=== PATIENT | male | born 1965 | race Caucasian/White ===

== ENCOUNTER → 2016-11-08 | Day surgery (SDC) | payer BC ==
[2016-10-19 13:21] VITALS: Ht 177.8 cm; Wt 103.2 kg
[~2016-11-08] VITALS: Ht 177.8 cm; Wt 103.2 kg
[~2016-11-08] MED LIST: ASTN; CYCL10TA7 PO; FLUT0.0529 NAE; GABA400C PO; HYZ/50125 PO; IOPAMIDOL INJ 61% 15 ML VIAL ONE; LIDOCAINE HCL 1% MPF 5 ML VIAL ONE; MELA1TAB54 PO; METO25TA3 PO; MISC1CAP60 PO; MULT-506 PO; NAPR-1169 PO; OMEP20CA59 PO; SODIUM CHLORIDE 0.9% INJ 10 ML VIAL ONE; TRAZ1TAB8 PO; TURM1CAP2 PO; TYLOTC500 PO
--- NOTE | 2016-11-08 14:33 | History & Physical Bridge - [place] ---
H&P Re-Evaluation Bridge Note: I have examined the patient, reviewed the History & Physical and in the interval since the performance of the History & Physical I have noted the following changes of clinical significance: No changes noted
--- NOTE | 2016-11-08 15:07 | Discharge Instructions ---
Discharge Instructions Date of Service Nov 08, 2016. Visit Reason for Visit: Lumbosacral Intervertebral Disc Disorder Discharge Discharge Diagnosis / Problem: low back with right leg pain Discharge Goals Goal(s): Decrease discomfort, Improve function Activity Recommendations Activity Limitations: resume your previous activity Anesthesia . Post Anesthesia Instructions: If you have had General Anesthesia or IV Sedation: * Do not drive today. * Resume driving when surgeon permits. * Do not make important decisions or sign legal documents today. * Call surgeon for: 1. Temperature elevations greater than 101 degrees F. 2. Uncontrollable pain. 3. Excessive bleeding. 4. Persistent nausea and vomiting. 5. Medication intolerance (nausea, vomiting or rash). * For nausea and vomiting use only clear liquids such as: tea, soda, bouillon until nausea subsides, then gradually increase diet as tolerated. * If you have any concerns or questions, call your surgeon's office. If physician is unavailable and it is an emergency, call 911 or go to the nearest emergency room. . Diet Recommendations Recommended Home Diet: no limitations Procedures Procedures Performed: LUMBAR EPIDURAL STEROID INJECTION Pending Studies Studies pending at discharge: no Medical Emergencies . Who to Call and When: Medical Emergencies: If at any time you feel your situation is an emergency, please call 911 immediately. . Non-Emergent Contact Non-Emergency issues call your: Specialist . . "Provider Documentation" section prepared by Addy Sotelo. .
[2016-11-08 15:15] VITALS: BP 137/92; PULSE 86; O2SAT 97
--- NOTE | 2016-11-08 15:20 | OPERATIVE REPORT ---
DATE OF OPERATION: 11/08/2016 PREOPERATIVE DIAGNOSIS: Lumbar disc disease with radiculopathy. POSTOPERATIVE DIAGNOSIS: Same. PROCEDURE: Right paramedian L5-S1 intralaminar epidural steroid injection. SURGEON: Dr. Addy Sotelo. INDICATIONS: The patient is a 51-year-old white male who is known to have a L5-S1 disc disease with radicular pain. He has not responded to increases in the gabapentin and he had an epidural in the past, series of 2, that provided him with 70% relief of pain. He presents here today for an epidural injection to provide him with relief. PHYSICAL EXAMINATION: GENERAL: Pleasant male seated comfortably in no apparent distress. MUSCULOSKELETAL EXAMINATION: Lumbar paraspinal muscles were palpated and noted be nontender. He has normal lower extremity strength. Negative seated straight leg raises. CONSENT: Verbal and written consent was obtained from the patient. Risks and benefits were reviewed. Risks include but are not limited to epidural abscess, epidural hematoma, allergic reaction. The patient wishes to proceed. PROCEDURE: The patient was taken back to the special procedures room of the [facility] where he was maintained in a prone position. Backside was cleansed with Betadine x3 and a dry sterile dressing was applied. Fluoroscope was used to identify the L5-S1 intralaminar space and overlying skin was anesthetized on the right side with Lidocaine 1% with a 21-gauge 1.5-inch needle 4 mL was utilized. A 22-gauge 3-1/2 inch Tuohy needle was then directed down towards the intralaminar space. It was advanced under lateral fluoroscopic guidance and loss of resistance was noted at a depth of 6.5 cm. Isovue-300 contrast 1 mL was injected in which demonstrated epidural uptake pattern. He then underwent injection after negative aspiration of 40 mg of Depo-Medrol and 4 mL of preservative free sodium chloride. Injection was well tolerated. DISPOSITION: 1. The patient is taken out into the discharge recovery area where he will be discharged home once discharge criteria have been met. 2. Follow up in the [facility] office in 2-4 weeks. I attest to the content of the Intraoperative Record and any orders documented therein. Any exception s are noted below.
== END | disposition home or self-care (01) ==
LOC: X.SURG 13:32
PROVIDERS: ATTEND Physical Medicine & Rehabilitation
DX: M51.17 Intervertebral disc disorders with radiculopathy, lumbosacral region (principal)

== ENCOUNTER → 2017-10-21 | Outpatient (CLI) | payer OTHER ==
[~2017-10-21] MED LIST changes: +FEXO1TAB49 PO; -IOPAMIDOL INJ 61% 15 ML VIAL ONE; -LIDOCAINE HCL 1% MPF 5 ML VIAL ONE; -NAPR-1169 PO; +NAPR-22 PO; -SODIUM CHLORIDE 0.9% INJ 10 ML VIAL ONE; +TRAZ-162 PO; -TRAZ1TAB8 PO
== END | disposition home or self-care (01) ==
LOC: C.RDSM 16:40
PROVIDERS: ATTEND Physical Medicine & Rehabilitation Sports Medicine
DX: M54.12 Radiculopathy, cervical region (principal)

== ENCOUNTER → 2017-10-28 | Outpatient (CLI) | payer OTHER ==
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
== END | disposition home or self-care (01) ==
LOC: C.MRI 17:15
PROVIDERS: ATTEND Physical Medicine & Rehabilitation Sports Medicine
DX: M54.12 Radiculopathy, cervical region (principal)